=== PATIENT | male | born 1950 | race Asian ===

== ENCOUNTER 2018-08-18 05:33 | Day surgery (SDC) | payer MEDICARE, OTHER ==
[2018-08-17 16:21] VITALS: BMI 25.8
--- NOTE | 2018-08-18 03:45 | HP ---
HISTORY OF PRESENT ILLNESS: This is a 68-year-old [place] male, comes in for a colonoscopy and EGD. The patient has a history of bleeding AVMs in the past and also has had bleeding from the colon. He has had a massive GI bleeding more than 10 years ago and underwent resection of transverse_ colon by Dr. Duarte. The patient also had colonoscopy and polypectomy in the past. The patient has seen me 5 years ago because of anemia. At that time, he underwent EGD and colonoscopy. He was found to have ulcer in the gastric antrum and also in the duodenum and also polyp. He was placed on iron supplement and his blood came back to normal. He has done well over the last 5 years. Recently, his CBC showed mild anemia. Blood count has dropped down to 10.8. There is no history of hematochezia or melena. Bowel movements regular. The patient comes in for EGD and a colonoscopy because of unexplained anemia and history of colon polyps from before. ALLERGIES: NONE. MEDICAL ILLNESSES: 1. History of coronary artery disease, status post angioplasty and has had a stent placement done by Dr. Hutchison in 2017 . 2. Deep vein thrombosis, status post IVC filter placement. 3. Diabetes. 4. Hyperlipidemia. 5. Hypertension. 6. Prostate cancer, status post radiation therapy. PHYSICAL EXAMINATION: GENERAL: Appears comfortable. VITAL SIGNS: Pulse is 70 and blood pressure 130/70. HEENT: Conjunctivae clear. CARDIOVASCULAR SYSTEM: First and second heart sounds heard. LUNGS: Clear to auscultation. ABDOMEN: Soft. No organomegaly. No tenderness. No masses. EXTREMITIES: Reveal no edema. ADMITTING DIAGNOSES: 1. Anemia. 2. History of colon polyps. PLAN: EGD and colonoscopy. Job ID: [id number] [facility]
--- NOTE | 2018-08-18 12:20 | OP ---
DATE OF PROCEDURE: 08/18/2018 PROCEDURE PERFORMED: Esophagogastroduodenoscopy with biopsy. PREOPERATIVE DIAGNOSES: 1. Anemia. 2. History of gastric ulcer. POSTOPERATIVE DIAGNOSES: 1. Irregular Z-line, otherwise the esophagus appeared normal. 2. Multiple gastric polyps. Some of the polyps shows erosion on top of the polyps and ulceration. 3. Normal gastric body and duodenum. DESCRIPTION OF PROCEDURE: The patient was placed on his left lateral position and was given sedation by Anesthesia Department. A Pentax video gastroscope under direct vision passed down the oropharynx past the GE junction into the stomach and subsequently into the descending duodenum. The esophageal mucosa appeared normal. However, the Z-line was irregular. Upon entering the stomach, the scope was retroflexed _to visualise the fundus and cardia. No lesions in the fundus and cardia. Over the gastric body, there were multiple gastric polyps seen. They were varying in sizes. Endoscopy appeared to be benign. A couple of polyps were biopsied. There was some erosions on top of the polyps and ulceration on one of the polyps. The incisura angularis, gastric antrum, and duodenum including the bulb and descending part; no pathology seen. The stomach was decompressed and the scope was removed. RECOMMENDATIONS: 1. Start the patient on omeprazole 40 once a day. 2. Iron supplement. 3. Follow up H and H. 4. Consider capsule endoscopy as an outpatient because of anemia with minimal findings on EGD and colonoscopy. Job ID: [id number] [facility]
--- NOTE | 2018-08-18 12:57 | OP ---
DATE OF PROCEDURE: 08/18/2018 PROCEDURE PERFORMED: Colonoscopy with biopsy. PREOPERATIVE DIAGNOSIS: A 68-year-old [place] male with history of colon polyps in 2014, anemia. POSTOPERATIVE DIAGNOSES: 1. Small sessile ascending colon polyp removed with biopsy forceps. 2. Hemorrhoids. DESCRIPTION OF PROCEDURE: The patient was placed on his left lateral position and was given sedation by Anesthesia Department. The rectal exam was done before the scope was advanced into the rectum. No lesions were felt on rectal exam. A Pentax video colonoscope was introduced into the rectum and advanced all the way into the cecum. The patient had previous colon resection for the gastric bleeding in the past. The anastomotic area appears healthy. The mucosa appears normal throughout the colon with normal vascular pattern. The appendiceal orifice, ileocecal wall, and cecum; no pathology seen. The patient did have some fecal residue over the right colon _. However, there was no underlying pathology seen. A small sessile 6-mm ascending colon polyp removed with biopsy. Subsequently moved down the remainder of the colon including the descending colon, sigmoid colon; no pathology seen. Retroflexion of the scope in the rectum showed hemorrhoids. Job ID: [id number] [facility]
[2018-08-18] MEDS ORDERED: PROPOFOL 200 MG/20 ML VIAL ONE (13:56)
[2018-08-18] MEDS ORDERED: ePHEDrine 50 MG/ML VIAL ONE (13:56)
[2018-08-18] MEDS ORDERED: Lidocaine 1% PF 5 ML VIAL ONE (13:56)
== END 2018-08-18 09:23 | disposition home or self-care (01) ==
LOC: SDC 05:33
PROVIDERS: ATTEND Internal Medicine Gastroenterology
PROC: 0DBK8ZX Excision of Ascending Colon, Via Natural or Artificial Opening Endoscopic, Diagnostic (ICD-10-PCS; principal; 2018-08-18)
PROC: 0DB78ZX Excision of Stomach, Pylorus, Via Natural or Artificial Opening Endoscopic, Diagnostic (ICD-10-PCS; 2018-08-18)
DX: D64.9 Anemia, unspecified (principal); D12.2 Benign neoplasm of ascending colon; K31.7 Polyp of stomach and duodenum; K25.9 Gastric ulcer, unspecified as acute or chronic, without hemorrhage or perforation; K64.9 Unspecified hemorrhoids; I25.10 Atherosclerotic heart disease of native coronary artery without angina pectoris; E11.9 Type 2 diabetes mellitus without complications; E78.5 Hyperlipidemia, unspecified; I10 Essential (primary) hypertension; Z90.49 Acquired absence of other specified parts of digestive tract; Z95.5 Presence of coronary angioplasty implant and graft; Z86.010 Personal history of colon polyps; Z86.718 Personal history of other venous thrombosis and embolism; Z79.02 Long term (current) use of antithrombotics/antiplatelets; Z79.82 Long term (current) use of aspirin; Z79.899 Other long term (current) drug therapy; Z79.84 Long term (current) use of oral hypoglycemic drugs
CPT/HCPCS: 88305; 88312; 88313; J2001; J2704; J3490

== ENCOUNTER 2018-11-11 11:02 | Day surgery (SDC) | payer MEDICARE, OTHER ==
[2018-11-10 13:10] VITALS: BMI 26.6
--- NOTE | 2018-11-11 08:01 | HP ---
HISTORY OF PRESENT ILLNESS: This is a 68-year-old [place] Citizen male with recurrent microcytic anemia. The patient has no history of overt GI bleeding. No history of . The patient has had transverse colectomy in the past for massive lower GI bleeding. He also had an EGD done in the past. The patient was referred to me by Dr. Hector Stephenson because of recurrent microcytic anemia. An EGD done recently was negative. A colonoscopy was done that showed no pathology. The patient had a capsule study in my office. This was done the last week in September. He was found to have an AVM in the proximal small bowel. He was advised to come back for an EGD, but the patient could not come back until now. The patient has no hematochezia or any melena. No abdominal pain. ALLERGIES: NONE. MEDICAL ILLNESSES: 1. Hypertension. 2. Hyperlipidemia. 3. Diabetes. 4. Recurrent microcytic anemia. 5. Past history of myocardial infarction. 6. History of prostate cancer. PHYSICAL EXAMINATION: GENERAL: Weight is 164 pounds, pulse is 70, and blood pressure 110/76. HEENT: Conjunctivae clear. CARDIOVASCULAR: First and second heart sounds are normal. LUNGS: Clear to auscultation. ABDOMEN: Soft. No organomegaly. No tenderness. No masses. EXTREMITIES: Reveal no edema. ADMITTING DIAGNOSIS: Recurrent microcytic anemia. A capsule study in my office showed an AVM in the proximal small bowel. This capsule study was done approximately almost 7 weeks ago. The patient could not come back for an EGD until now. The plan is for EGD, possible enteroscopy. There is some bleeding site . Job ID: [id number]
[2018-11-11] MEDS ORDERED: PROPOFOL 200 MG/20 ML VIAL ONE (16:48)
--- NOTE | 2018-11-12 09:04 | OP ---
DATE OF PROCEDURE: 11/11/2018 OPERATIVE PROCEDURES: Esophagogastroduodenoscopy, enteroscopy. 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 The patient was brought in for esophagogastroduodenoscopy. DESCRIPTION OF PROCEDURE: The patient was placed on his left lateral position and the throat was anesthetized using spray. The patient was given sedation by Anesthesia Department. A Pentax videogastroscope under direct vision passed down the oropharynx, past the GE junction into the stomach. The esophagus mucosa appeared normal. The GE junction, no pathology. The patient had a small hiatal hernia. Retroflexion failed to show any pathology in fundus or cardia. The patient had multiple gastric polyps that were also ulcerated. The incisura angularis, no pathology seen. The gastric antrum, duodenal bulb, no pathology seen. The descending duodenum showed diverticula. The scope advanced as well to the fourth part of duodenum. I do not see any pathology in the descending duodenum. The scope was changed to colonoscopy. The colonoscope was advanced easily down the esophagus into the stomach and subsequently into the descending duodenum. I was able to get the scope into the proximal jejunum. Careful withdrawal of scope from jejunum into the four part and third part show no AVM. No bleeding seen. 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 The stomach decompressed and the scope removed. DISCHARGE PLANNING: This 68-year-old [place] male with recurrent microcytic anemia. The patient had colonoscopy and EGD in September of 2018, which were negative. He had a capsule endoscopy, which revealed AVM in the jejunum. He was brought in for EGD and possible endoscopy. He underwent EGD, which revealed no pathology except for some ulcerated polyp. The enteroscopy again showed no pathology except for jejunal diverticulum. DISCHARGE RECOMMENDATION: 1. The patient advised to call me if he develops abdominal pain or hematochezia. 2. Continue on supplement. 3. To come back to clinic in 2 weeks. Job ID: [id number]
== END 2018-11-11 14:53 | disposition home or self-care (01) ==
LOC: SDC 11:02
PROVIDERS: ATTEND Internal Medicine Gastroenterology
PROC: 0DJD8ZZ Inspection of Lower Intestinal Tract, Via Natural or Artificial Opening Endoscopic (ICD-10-PCS; principal; 2018-11-11)
DX: D50.9 Iron deficiency anemia, unspecified (principal); K57.10 Diverticulosis of small intestine without perforation or abscess without bleeding; K31.7 Polyp of stomach and duodenum; K44.9 Diaphragmatic hernia without obstruction or gangrene; I10 Essential (primary) hypertension; E78.5 Hyperlipidemia, unspecified; E11.9 Type 2 diabetes mellitus without complications; I25.2 Old myocardial infarction; Z90.49 Acquired absence of other specified parts of digestive tract; Z95.5 Presence of coronary angioplasty implant and graft; Z98.890 Other specified postprocedural states
CPT/HCPCS: J2704

== ENCOUNTER 2018-11-18 09:21 | Outpatient (CLI) | payer MEDICARE, OTHER ==
--- NOTE | 2018-11-18 10:26 | RAD ---
PA AND LATERAL CHEST: HISTORY: Long-term current use of amiodarone. COMPARISON: 11/18/2017 FINDINGS: The heart size is normal. The aorta is tortuous. The lungs are well expanded without focal areas of consolidation, pneumothoraces, or pleural effusions. IVC filter in the abdomen is again seen. Ther e are degenerative changes in the spine. IMPRESSION: No acute process. POS: [id number]
== END 2018-11-18 09:22 | disposition home or self-care (01) ==
LOC: SCSRAD 09:21
PROVIDERS: ATTEND Family Medicine
DX: Z51.81 Encounter for therapeutic drug level monitoring (principal); Z79.899 Other long term (current) drug therapy
CPT/HCPCS: 71046

== ENCOUNTER 2021-11-29 15:08 | Inpatient (IN) | payer MEDICARE, OTHER ==
[2021-11-29 15:52] LABS: #Basophils 0.1 thou/uL (0.0-0.2); #Eosinphils 0.4 thou/uL (0.0-0.7); #Lymphocytes 1.5 thou/uL (1.20-3.40); #Monocytes 0.9 thou/uL (0.11-0.59); #Neutrophils 16.8 thou/uL (1.40-6.50); %Basophils 0.4 % (0.0-1.0); %Eosinophils 2.1 % (0.0-10.0); %Lymphocytes 7.7 % (21.0-51.0); %Monocytes 4.8 % (0.0-10.0); %Neutrophils 85.1 % (42.0-75.0); Hemoglobin 13.7 g/dL (14.0-18.0); Mean Corpuscular HGB CONC 32.5 g/dL (32.0-36.0); Mean Corpuscular Volume 95.3 fL (78.0-98.0); Mean Platelet Volume 9.5 fL (7.4-10.4); Platelet Count 342 thou/uL (130-400); RBC Distribution Width 12.6 % (11.5-14.5); Red Blood Cell (RBC) Count 4.41 mill/uL (4.70-6.10); White Blood Cell (WBC) Count 19.7 thou/uL (4.8-10.8)
[2021-11-29] MEDS ORDERED: Iopamidol-370 76% 500 ML 1 ML ONE (16:05)
[2021-11-29 16:12] LABS: ALT (SGPT) 13 U/L (8-55); AST (SGOT) 20 U/L (5-34); Albumin 3.9 g/dL (3.4-4.8); Alkaline Phosphatase 124 U/L (40-110); Anion Gap 15 mmol/L (10-20); BUN (Urea Nitrogen) 11 mg/dL (8.4-25.7); Bilirubin, Total 0.4 mg/dL (0.2-1.2); Calc. Creatinine Clearance 0 mL/min (70-130); Calcium 9.4 mg/dL (7.8-10.44); Carbon Dioxide 23 mmol/L (23-31); Chloride 104 mmol/L (98-107); Estimated GFR 70; Globulin 3.4 g/dL (2.4-3.5); Glucose 176 mg/dL (83-110); Lipase 26 U/L (8-78); Potassium 4.7 mmol/L (3.5-5.1); Protein, Total 7.3 g/dL (5.8-8.1); Sodium 137 mmol/L (136-145)
[2021-11-29 16:52] LABS: Bacteria/HPF None Seen HPF (None Seen); Bilirubin Negative (Negative); Blood, Urine Negative (Negative); Clarity Clear (Clear); Glucose, Urine (Dipstick) Normal (Negative); Ketone, Urine Negative (Negative); Leukocyte Negative Leu/uL (Negative); Nitrite Negative (Negative); Protein, Urine (Dipstick) 50 mg/dL (Neg-Trace); RBC/HPF None Seen HPF (0-3); Specific Gravity, Urine 1.018 (1.002-1.036); Squamous Epithelial None Seen HPF (0-3); Urobilinogen Normal mg/dL (Less than 2); WBC/HPF 0-3 HPF (0-3)
[2021-11-29] MEDS ORDERED: Ondansetron PF 4 MG/2 ML Vial ONE (17:16)
[2021-11-29] MEDS ORDERED: Morphine 4 MG/ML VIAL ONE (17:16)
[2021-11-29] MEDS ORDERED: Midazolam HCl 2 mg/2 ml Vial ONE (19:04)
[2021-11-29] MEDS ORDERED: Piperacillin/Tazobactam 4.5 GM VIAL ONE (19:04)
[2021-11-29] MEDS ORDERED: Benzocaine 20% Spray 60 ML CAN ONE (19:40)
[2021-11-29 21:28] LABS: Lactic Acid 1.8 mmol/L (0.5-2.2)
[2021-11-29] MEDS ORDERED: Lactated Ringer's 1,000 ML IV SCH (22:00)
[2021-11-29] MEDS ORDERED: Piperacillin/Tazobactam 3.375 GM in Sodium Chloride 0.9% 100 ML IVPB SCH (22:00)
[2021-11-29] MEDS ORDERED: Ondansetron PF 4 MG/2 ML Vial IVP PRN (22:00)
[2021-11-29 22:05] VITALS: BMI 24.0
[2021-11-29 22:57] LABS: SARS-CoV-2 NAA Rapid Test Not Detected (NotDetected)
[2021-11-30] MEDS ORDERED: Ondansetron PF 4 MG/2 ML Vial IVP PRN (02:12)
[2021-11-30] MEDS ORDERED: Sodium Chloride 0.9% 1,000 ML IV SCH (02:15)
[2021-11-30] MEDS ORDERED: Bisacodyl 10 MG SUPP PR PRN (02:33)
[2021-11-30] MEDS ORDERED: Acetaminophen 325 MG TAB PO PRN (02:33)
[2021-11-30] MEDS ORDERED: Acetaminophen 650 MG Suppository PR PRN (02:33)
[2021-11-30] MEDS ORDERED: hydrALAZINE 20 MG/ML VIAL SLOW IVP PRN (02:36)
[2021-11-30] MEDS ORDERED: HumaLOG 300 UNITS/3 ML VIAL SC PRN ×2 (02:36)
[2021-11-30] MEDS ORDERED: Dextrose 50% Abboject 50 ML SYRINGE SLOW IVP PRN (02:36)
[2021-11-30] MEDS ORDERED: Dextrose 5% in Water 1,000 ML IV PRN (02:36)
[2021-11-30] MEDS ORDERED: Piperacillin/Tazobactam 3.375 GM in Sodium Chloride 0.9% 100 ML IVPB SCH ×2 (03:00→06:00)
[2021-11-30 05:28] LABS: #Basophils 0.1 thou/uL (0.0-0.2); #Eosinphils 2.1 thou/uL (0.0-0.7); #Lymphocytes 1.6 thou/uL (1.20-3.40); #Monocytes 1.3 thou/uL (0.11-0.59); #Neutrophils 10.1 thou/uL (1.40-6.50); %Basophils 0.6 % (0.0-1.0); %Eosinophils 13.7 % (0.0-10.0); %Lymphocytes 10.8 % (21.0-51.0); %Monocytes 8.8 % (0.0-10.0); %Neutrophils 66.2 % (42.0-75.0); Hemoglobin 12.3 g/dL (14.0-18.0); Mean Corpuscular HGB CONC 32.7 g/dL (32.0-36.0); Mean Corpuscular Hemoglobin 31.6 pg (27.0-31.0); Mean Corpuscular Volume 96.6 fL (78.0-98.0); Mean Platelet Volume 9.6 fL (7.4-10.4); Platelet Count 278 thou/uL (130-400); RBC Distribution Width 12.5 % (11.5-14.5); Red Blood Cell (RBC) Count 3.89 mill/uL (4.70-6.10); White Blood Cell (WBC) Count 15.2 thou/uL (4.8-10.8)
[2021-11-30 05:33] LABS: Hemoglobin A1c 6.4 % (4.0-6.0)
[2021-11-30] MEDS: Piperacillin/Tazobactam 3.375 GM in Sodium Chloride 0.9% 100 ML IVPB SCH ×3 (05:44→21:12)
[2021-11-30 05:47] LABS: ALT (SGPT) 10 U/L (8-55); AST (SGOT) 11 U/L (5-34); Albumin 3.4 g/dL (3.4-4.8); Alkaline Phosphatase 109 U/L (40-110); Anion Gap 11 mmol/L (10-20); BUN (Urea Nitrogen) 11 mg/dL (8.4-25.7); Bilirubin, Total 0.6 mg/dL (0.2-1.2); Calc. Creatinine Clearance 51 mL/min (70-130); Calcium 8.9 mg/dL (7.8-10.44); Carbon Dioxide 26 mmol/L (23-31); Chloride 103 mmol/L (98-107); Estimated GFR 60; Globulin 2.8 g/dL (2.4-3.5); Glucose 148 mg/dL (83-110); Potassium 4.4 mmol/L (3.5-5.1); Protein, Total 6.2 g/dL (5.8-8.1); Sodium 136 mmol/L (136-145)
[2021-11-30] MEDS: Lactated Ringer's 1,000 ML IV SCH ×3 (06:29→21:18)
[2021-11-30] MEDS: Pantoprazole 40 MG VIAL IVP SCH (09:58)
[2021-12-01] MEDS: Lactated Ringer's 1,000 ML IV SCH (02:57)
[2021-12-01] MEDS: Piperacillin/Tazobactam 3.375 GM in Sodium Chloride 0.9% 100 ML IVPB SCH ×2 (05:46→15:34)
[2021-12-01 07:45] LABS: #Basophils 0.1 thou/uL (0.0-0.2); #Eosinphils 2.9 thou/uL (0.0-0.7); #Lymphocytes 2.2 thou/uL (1.20-3.40); #Monocytes 0.9 thou/uL (0.11-0.59); #Neutrophils 7.5 thou/uL (1.40-6.50); %Basophils 0.7 % (0.0-1.0); %Eosinophils 21.5 % (0.0-10.0); %Lymphocytes 16.1 % (21.0-51.0); %Monocytes 6.4 % (0.0-10.0); %Neutrophils 55.4 % (42.0-75.0); Hemoglobin 13.8 g/dL (14.0-18.0); Mean Corpuscular HGB CONC 31.8 g/dL (32.0-36.0); Mean Corpuscular Hemoglobin 31.1 pg (27.0-31.0); Mean Corpuscular Volume 97.9 fL (78.0-98.0); Mean Platelet Volume 9.8 fL (7.4-10.4); Platelet Count 365 thou/uL (130-400); RBC Distribution Width 12.5 % (11.5-14.5); Red Blood Cell (RBC) Count 4.44 mill/uL (4.70-6.10); White Blood Cell (WBC) Count 13.5 thou/uL (4.8-10.8)
[2021-12-01] MEDS ORDERED: Lactated Ringer's 1,000 ML IV SCH (11:21)
[2021-12-01] MEDS: Pantoprazole 40 MG VIAL IVP SCH (12:24)
[2021-12-01] MEDS ORDERED: metFORMIN 500 MG TAB PO SCH (17:00)
[2021-12-01] MEDS ORDERED: Metoprolol Tartrate 25 MG TAB PO SCH (17:00)
[2021-12-01] MEDS ORDERED: Lisinopril 20 MG TAB PO SCH (21:00)
[2021-12-02 05:15] VITALS: BP 146/76; TEMP 98.3
[2021-12-02] MEDS ORDERED: Ferrous Sulfate 325 MG TAB PO SCH (08:00)
[2021-12-02] MEDS ORDERED: Folic Acid 1 MG TAB PO SCH (09:00)
[2021-12-02] MEDS ORDERED: Aspirin Chewable 81 MG TAB PO SCH (09:00)
[2021-12-02] MEDS ORDERED: Amlodipine 10 MG TAB PO SCH (09:00)
[2021-12-02] MEDS ORDERED: Fish Oil 1,000 MG CAP PO SCH (09:00)
[2021-12-02] MEDS ORDERED: Vitamin E 400 UNITS CAP PO SCH (09:00)
[2021-12-02] MEDS ORDERED: Ascorbic Acid 500 mg Chewable Tablet PO SCH (09:00)
== END 2021-12-02 11:29 | disposition home or self-care (01) | DRG 389 ==
LOC: ERS 15:08 → SURG B 18:46
PROVIDERS: ADMIT Family Medicine; ATTEND Family Medicine
PROC: 0D9670Z Drainage of Stomach with Drainage Device, Via Natural or Artificial Opening (ICD-10-PCS; principal; 2021-11-29)
DX: K56.600 Partial intestinal obstruction, unspecified as to cause (principal); K35.80 Unspecified acute appendicitis; Z20.822 Contact with and (suspected) exposure to COVID-19; E78.00 Pure hypercholesterolemia, unspecified; I10 Essential (primary) hypertension; C61 Malignant neoplasm of prostate; E11.59 Type 2 diabetes mellitus with other circulatory complications; I25.10 Atherosclerotic heart disease of native coronary artery without angina pectoris; I25.2 Old myocardial infarction; Z98.890 Other specified postprocedural states; Z79.899 Other long term (current) drug therapy; Z79.82 Long term (current) use of aspirin
CPT/HCPCS: 36415; 36416; 74018; 74177; 74250; 80053; 81003; 81015; 83036; 83605; 83690; 84443; 85025; 87040; 93005; 96365; 96375; C9113; J1815; J2250; J2270; J2405; J2543; J3490; J7120; Q9967; U0002

== ENCOUNTER 2022-02-18 08:39 | Outpatient (CLI) | payer MEDICARE, OTHER ==
[2022-02-18] MEDS ORDERED: Iopamidol-370 76% 500 ML 1 ML ONE (14:29)
== END 2022-02-18 08:40 | disposition home or self-care (01) ==
LOC: BICCT 08:39
PROVIDERS: ATTEND Internal Medicine Cardiovascular Disease
DX: I65.21 Occlusion and stenosis of right carotid artery (principal); I70.8 Atherosclerosis of other arteries
CPT/HCPCS: 70498; Q9967

== ENCOUNTER 2022-04-29 12:55 | Inpatient (IN) | payer MEDICARE, OTHER ==
[2022-04-29] MEDS ORDERED: Iopamidol-370 76% 500 ML 1 ML ONE (13:09)
[2022-04-29 14:15] LABS: Hemoglobin 12.6 g/dL (14.0-18.0); Mean Corpuscular Hemoglobin 31.4 pg (27.0-31.0); Mean Corpuscular Volume 95.3 fl (78.0-98.0); Mean Platelet Volume 9.1 fL (7.4-10.4); Platelet Count 298 10x3/uL (130-400); RBC Distribution Width 12.8 % (11.5-14.5); Red Blood Cell (RBC) Count 4.02 mill/uL (4.70-6.10)
[2022-04-29 14:27] LABS: ALT (SGPT) 15 U/L (8-55); AST (SGOT) 26 U/L (5-34); Albumin 3.1 g/dL (3.4-4.8); Alkaline Phosphatase 99 U/L (40-110); Anion Gap 13 mmol/L (10-20); BUN (Urea Nitrogen) 10 mg/dL (8.4-25.7); Bilirubin, Total 0.5 mg/dL (0.2-1.2); Calc. Creatinine Clearance 0 mL/min (70-130); Calcium 8.3 mg/dL (7.8-10.44); Carbon Dioxide 25 mmol/L (23-31); Chloride 105 mmol/L (98-107); Estimated GFR 68; Globulin 3.3 g/dL (2.4-3.5); Glucose 106 mg/dL (83-110); Lipase 64 U/L (8-78); Potassium 3.1 mmol/L (3.5-5.1); Protein, Total 6.4 g/dL (5.8-8.1); Sodium 140 mmol/L (136-145)
[2022-04-29 14:34] LABS: Band 3 % (5-11); Eosinophils 4 % (0-10); Lymphocytes 9 % (21-51); MDiff Complete? YES; Monocytes 6 % (0-10); Neutrophil 75 % (42-75); Platelet Morphology Comment Appears Adequate; Polychromasia SLIGHT = 2-3 cells (100X) (0-2/hpf); Reactive Lymphocytes 1 % (0-10)
[2022-04-29] MEDS ORDERED: cefTRIAXone\\ROCEPHIN 1 GM VIAL ONE (15:54)
[2022-04-29 16:38] LABS: SARS-CoV-2 NAA Rapid Test Not Detected (NotDetected)
[2022-04-29] MEDS ORDERED: Aspirin Chewable 81 MG TAB ONE (16:46)
[2022-04-29] MEDS ORDERED: Azithromycin 500 MG VIAL ONE (16:46)
[2022-04-29 16:59] LABS: CKMB 2.8 ng/mL (0-6.6)
[2022-04-29 17:07] LABS: Bilirubin Negative (Negative); Blood, Urine Negative (Negative); Clarity Clear (Clear); Glucose, Urine (Dipstick) Normal (Negative); Ketone, Urine Negative (Negative); Leukocyte Negative Leu/uL (Negative); Nitrite Negative (Negative); Protein, Urine (Dipstick) 10 mg/dL (Neg-Trace); Urobilinogen Normal mg/dL (Less than 2); pH, Urine 5.5 (5.0-9.0)
[2022-04-29] MEDS ORDERED: Enoxaparin Sodium 30 MG/0.3 ML SYRINGE ONE (17:07)
[2022-04-29] MEDS ORDERED: Enoxaparin Sodium 40 MG/0.4 ML SYRINGE ONE (17:07)
[2022-04-29] MEDS ORDERED: Ondansetron PF 4 MG/2 ML Vial IVP PRN (19:38)
[2022-04-29] MEDS ORDERED: Acetaminophen 325 MG TAB PO PRN (19:38)
[2022-04-29] MEDS ORDERED: Furosemide 20 MG/2 ML VIAL SLOW IVP SCH (19:45)
[2022-04-29 19:50] LABS: Critical Call Chem Troponin I RESULT DECREASING; Troponin I 0.702 ng/mL (< 0.028)
[2022-04-29] MEDS ORDERED: guaiFENesin 200 MG TAB PO PRN (19:53)
[2022-04-29] MEDS ORDERED: Benzonatate 100 MG CAP PO PRN (19:53)
[2022-04-29] MEDS ORDERED: Electrolyte Replacement Protocol 1 EACH FS SCH (20:00)
[2022-04-29] MEDS ORDERED: Potassium Chloride 20 MEQ TAB PO SCH (20:00)
[2022-04-29] MEDS ORDERED: Atorvastatin Calcium 20 MG TAB PO SCH (21:00)
[2022-04-29 21:48] VITALS: BMI 25.7
[2022-04-29 23:00] LABS: Troponin I 0.744 ng/mL (< 0.028)
[2022-04-29] MEDS: Metoprolol Tartrate 25 MG TAB PO SCH (23:01)
[2022-04-29] MEDS: Lisinopril 10 MG TAB PO SCH (23:02)
[2022-04-30 01:28] LABS: Anion Gap 11 mmol/L (10-20); BUN (Urea Nitrogen) 9 mg/dL (8.4-25.7); Calc. Creatinine Clearance 60 mL/min (70-130); Calcium 7.9 mg/dL (7.8-10.44); Carbon Dioxide 24 mmol/L (23-31); Chloride 105 mmol/L (98-107); Estimated GFR 71; Glucose 111 mg/dL (83-110); Magnesium 1.7 mg/dL (1.6-2.6); Potassium 3.3 mmol/L (3.5-5.1); Sodium 137 mmol/L (136-145)
[2022-04-30 03:20] LABS: #Eosinphils 1.3 thou/uL (0.0-0.7); #Lymphocytes 1.6 thou/uL (1.20-3.40); #Monocytes 1.3 thou/uL (0.11-0.59); #Neutrophils 7.9 thou/uL (1.40-6.50); %Basophils 0.3 % (0.0-1.0); %Eosinophils 10.7 % (0.0-10.0); %Monocytes 10.9 % (0.0-10.0); Hemoglobin 11.6 g/dL (14.0-18.0); Mean Corpuscular HGB CONC 32.2 g/dL (32.0-36.0); Mean Corpuscular Hemoglobin 30.8 pg (27.0-31.0); Mean Corpuscular Volume 95.5 fl (78.0-98.0); Mean Platelet Volume 9.6 fL (7.4-10.4); Platelet Count 285 10x3/uL (130-400); RBC Distribution Width 12.7 % (11.5-14.5); Red Blood Cell (RBC) Count 3.76 mill/uL (4.70-6.10); White Blood Cell (WBC) Count 12.2 10x3/uL (4.8-10.8)
[2022-04-30 03:37] LABS: Anion Gap 11 mmol/L (10-20); BUN (Urea Nitrogen) 9 mg/dL (8.4-25.7); Calc. Creatinine Clearance 59 mL/min (70-130); Calcium 8.1 mg/dL (7.8-10.44); Carbon Dioxide 26 mmol/L (23-31); Cardiac Risk 5.3 (Less than 4.5); Chloride 104 mmol/L (98-107); Cholesterol 106 mg/dl (< 200 Desired); Estimated GFR 69; Glucose 92 mg/dL (83-110); HDL Cholesterol 20 mg/dL (>60 Neg Risk); LDL Cholesterol, Calculated 67 mg/dL; Magnesium 1.7 mg/dL (1.6-2.6); Potassium 3.4 mmol/L (3.5-5.1); Sodium 138 mmol/L (136-145); Triglycerides 94 mg/dL (Less than 150)
[2022-04-30] MEDS ORDERED: Magnesium 2 GM/50 ML(in water) 2 GM in Premix Bag 1 BAG IVPB SCH (03:45)
[2022-04-30] MEDS ORDERED: Potassium Chloride 20 MEQ TAB PO SCH (04:00)
[2022-04-30] MEDS: Furosemide 40 MG/4 ML VIAL SLOW IVP SCH (08:29)
[2022-04-30] MEDS: Lisinopril 10 MG TAB PO SCH ×2 (08:29→20:38)
[2022-04-30] MEDS: Metoprolol Tartrate 25 MG TAB PO SCH ×2 (08:29→20:38)
[2022-04-30] MEDS: Aspirin Chewable 81 MG TAB PO SCH (08:30)
[2022-04-30] MEDS ORDERED: Enoxaparin Sodium 80 MG/0.8 ML SYRINGE SC SCH (09:00)
[2022-04-30] MEDS ORDERED: cefTRIAXone\\ROCEPHIN 1 GM in Sodium Chloride 0.9% 100 ML IVPB SCH (16:00)
[2022-04-30] MEDS ORDERED: Azithromycin 500 MG in Sodium Chloride 0.9% 250 ML 250 ML IVPB SCH (17:00)
[2022-04-30 20:39] VITALS: BP 126/62
[2022-04-30] MEDS ORDERED: Atorvastatin Calcium 20 MG TAB PO SCH (21:00)
[2022-04-30] MEDS ORDERED: Enoxaparin Sodium 40 MG/0.4 ML SYRINGE SC SCH (21:00)
[2022-05-01 04:07] LABS: Magnesium 1.9 mg/dL (1.6-2.6)
[2022-05-01 07:23] VITALS: TEMP 97.9
[2022-05-01] MEDS ORDERED: Magnesium 2 GM/50 ML(in water) 2 GM in Premix Bag 1 BAG IVPB SCH (08:00)
[2022-05-01] MEDS: Metoprolol Tartrate 25 MG TAB PO SCH (08:40)
[2022-05-01] MEDS: Lisinopril 10 MG TAB PO SCH (08:40)
[2022-05-01] MEDS: Furosemide 40 MG/4 ML VIAL SLOW IVP SCH (08:41)
[2022-05-01] MEDS: Aspirin Chewable 81 MG TAB PO SCH (08:41)
[2022-05-01] MEDS ORDERED: Lisinopril 20 MG TAB PO SCH (08:46)
[2022-05-01 09:05] LABS: #Eosinphils 1.7 thou/uL (0.0-0.7); #Lymphocytes 1.3 thou/uL (1.20-3.40); #Monocytes 0.9 thou/uL (0.11-0.59); #Neutrophils 6.5 thou/uL (1.40-6.50); %Basophils 0.2 % (0.0-1.0); %Eosinophils 16.4 % (0.0-10.0); %Lymphocytes 12.3 % (21.0-51.0); %Neutrophils 62.2 % (42.0-75.0); Hemoglobin 13.1 g/dL (14.0-18.0); Mean Corpuscular HGB CONC 31.3 g/dL (32.0-36.0); Mean Corpuscular Hemoglobin 30.6 pg (27.0-31.0); Mean Corpuscular Volume 97.7 fl (78.0-98.0); Platelet Count 273 10x3/uL (130-400); RBC Distribution Width 13.1 % (11.5-14.5); Red Blood Cell (RBC) Count 4.27 mill/uL (4.70-6.10); White Blood Cell (WBC) Count 10.4 10x3/uL (4.8-10.8)
[2022-05-01 09:17] LABS: Anion Gap 16 mmol/L (10-20); BUN (Urea Nitrogen) 8 mg/dL (8.4-25.7); Calc. Creatinine Clearance 63 mL/min (70-130); Calcium 8.2 mg/dL (7.8-10.44); Carbon Dioxide 19 mmol/L (23-31); Chloride 106 mmol/L (98-107); Estimated GFR 78; Glucose 118 mg/dL (83-110); Potassium 3.5 mmol/L (3.5-5.1); Sodium 137 mmol/L (136-145)
[2022-05-01] MEDS ORDERED: Potassium Chloride 20 MEQ TAB PO SCH (10:30)
== END 2022-05-01 12:55 | disposition home or self-care (01) | DRG 871 ==
LOC: ERS 12:55 → ERHOLD 18:03 → IMCU/EMU 21:08
PROVIDERS: ADMIT Family Medicine; ATTEND Hospitalist
PROC: 3E03329 Introduction of Other Anti-infective into Peripheral Vein, Percutaneous Approach (ICD-10-PCS; principal; 2022-04-29)
PROC: 5A0935A Assistance with Respiratory Ventilation, Less than 24 Consecutive Hours, High Flow/Velocity Cannula (ICD-10-PCS; 2022-04-29)
DX: A41.9 Sepsis, unspecified organism (principal); I21.A1 Myocardial infarction type 2; J18.9 Pneumonia, unspecified organism; J96.01 Acute respiratory failure with hypoxia; I50.21 Acute systolic (congestive) heart failure; I13.0 Hypertensive heart and chronic kidney disease with heart failure and stage 1 through stage 4 chronic kidney disease, or unspecified chronic kidney disease; I47.20 Ventricular tachycardia, unspecified; I25.10 Atherosclerotic heart disease of native coronary artery without angina pectoris; N18.30 Chronic kidney disease, stage 3 unspecified; E78.5 Hyperlipidemia, unspecified; D63.1 Anemia in chronic kidney disease; E87.6 Hypokalemia; Z20.822 Contact with and (suspected) exposure to COVID-19; Z95.828 Presence of other vascular implants and grafts; Z85.46 Personal history of malignant neoplasm of prostate; Z92.3 Personal history of irradiation; Z79.899 Other long term (current) drug therapy; Z79.82 Long term (current) use of aspirin; Z95.5 Presence of coronary angioplasty implant and graft; Z98.890 Other specified postprocedural states; Z86.718 Personal history of other venous thrombosis and embolism; Z82.49 Family history of ischemic heart disease and other diseases of the circulatory system; Z82.3 Family history of stroke
CPT/HCPCS: 36415; 71045; 74177; 80048; 80053; 80061; 81003; 82553; 83605; 83690; 83735; 83880; 84145; 84443; 84484; 85025; 87040; 87081; 87086; 93005; 93306; 96372; 96374; 96375; J0456; J0696; J1650; J1940; J3475; J3490; J7050; Q9967

== ENCOUNTER 2023-06-09 15:23 | Outpatient (CLI) | payer MEDICARE, OTHER | END 2023-06-09 15:24 | disposition home or self-care (01) | LOC: BICULT 15:23 | PROVIDERS: ATTEND Family Medicine | DX: I65.21 Occlusion and stenosis of right carotid artery (principal) | CPT/HCPCS: 93880 ==